=== PATIENT | female | born 1940 | race Caucasian/White ===

== ENCOUNTER 2019-06-28 09:35 | Observation (INO) ==
--- NOTE | 2019-06-24 12:10 | Anesthesiology Consultation ---
Date of Service June 24, 2019 Assessment & Plan (1) Encounter for pre-operative examination: Chart Review Chart Review: Acceptable Risk for Surgery (pending confirmed EKG and re- evaluation DOS ) and Patient NOT seen in Pre Admission Testing Pt seen by PCP 06/08/19 for epigastric pain and N/V. Was also having chest congestion and tightness. Pt was add on for surgery and did not come through PAT- will need re-evaluation DOS. Preliminary EKG showing no significant issues- will just need confirmed EKG reviewed DOS History Surgery Operation Date: 06/28/19 11:10 Proposed Procedures p Laparoscopic Cholecystectomy - Riky Arroyo MD, FACS Height/Weight Height: 5 ft 5 in Weight: 75.75 kg Allergies Allergy/AdvReac Type Severity Reaction Status Date / Time Iodinated Contrast Media Allergy Intermediate Rash Verified 06/24/19 10:24 Penicillins Allergy Intermediate Rash Verified 06/24/19 13:59 aspirin Allergy Unverified 06/24/19 14:54 Medications Home Medications Medication Instructions Recorded Confirmed Last Taken ascorbic acid (vitamin C) [Vitamin 1 g PO QAM 06/24/19 06/24/19 Unknown C] diltiazem HCl 120 mg 120 mg PO ONCE cap 06/24/19 06/24/19 Unknown capsule,extended release 12 hr simvastatin 40 mg tablet 40 mg PO DAILY 06/24/19 06/24/19 Unknown Past Medical History Medical History Arthritis Diverticular disease History of colitis Hyperlipidemia Hypertension Past Family History Family History Mother Family history of diabetes mellitus Grandmother (Maternal) Family history of diabetes mellitus Brother History of colon cancer Sister History of esophageal cancer Past Surgical History Surgical History History of amputation of toe Left great toe History of colonoscopy History of tonsillectomy History of tooth extraction Social History Smoking Status: Never smoker (second handsmoke exposure- was smoker) Hx Alcohol Use: No Hx Substance Use: No Testing Laboratory Results Laboratory Tests 06/21/19 06/21/19 08:34 08:34 WBC 8.50 Hgb 14.1 Hct 43.8 Plt Count 302 Sodium 141 Potassium 4.3 Chloride 105 Carbon Dioxide 32 BUN 11 Creatinine 0.71 Glucose 107 H Electrocardiogram Date: 06/24/19 Findings: + NSR @ (71) unconfirmed
[~2019-06-28 09:35] MED LIST: ACETAMINOPHEN 1000 MG/100 ML IV IV ONE; CIPROFLOXACIN 400 MG/200 ML BAG IV SCH; LR 15ML/HR IV SCH
[2019-06-28] MEDS ORDERED: ROCURONIUM BROMID 50MG/5ML SYR ONE (10:27)
[2019-06-28] MEDS ORDERED: LIDOCAINE HCL 2% 2 ML VIAL/AMP(20MG/ML) INFIL ONE (10:27)
[2019-06-28] MEDS ORDERED: ONDANSETRON INJ 2 MG/ML 2 ML VIAL ONE (10:27)
[2019-06-28] MEDS ORDERED: PROPOFOL IV EMULSION 10 MG/ML 20 ML VIAL IV ONE (10:27)
[2019-06-28] MEDS ORDERED: fentaNYL citrate 100 MCG/2 ML VIAL ONE ×2 (10:27→12:39)
[2019-06-28] MEDS ORDERED: BUPIVACAINE 0.5 % 5 MG/1 ML MPF 30ML VIAL ONE (10:56)
--- NOTE | 2019-06-28 10:57 | History & Physical Bridge Note ---
Date of Service June 28, 2019 History & Physical Bridge Note I have examined the patient, reviewed the History & Physical and in the interval since the performance of the History & Physical I have noted the following changes of clinical significance: no changes noted
[2019-06-28] MEDS ORDERED: FLUMAZENIL 0.1 MG/1 ML 10 ML VIAL IV PRN (11:13)
[2019-06-28] MEDS ORDERED: LABETALOL HCL IV 5 MG/ML 20ML IV PRN (11:13)
[2019-06-28] MEDS ORDERED: ATROPINE SULFATE 0.1 MG/ML 10ML SYR IV PRN (11:13)
[2019-06-28] MEDS ORDERED: PROMETHAZINE HCL 12.5 MG in SODIUM CHLORIDE 0.9% 50 ML IV PRN ×2 (11:13→13:59)
[2019-06-28] MEDS ORDERED: fentaNYL citrate 100 MCG/2 ML VIAL IV PRN (11:13)
[2019-06-28] MEDS ORDERED: ONDANSETRON INJ 2 MG/ML 2 ML VIAL IV PRN ×2 (11:13→13:59)
[2019-06-28] MEDS ORDERED: ePHEDrine sulfate 50 MG/ML AMP IV PRN (11:13)
[2019-06-28] MEDS ORDERED: NALOXONE HCL 0.4 MG/1 ML VIAL/CARP IV PRN (11:13)
[2019-06-28] MEDS ORDERED: ESMOLOL HCL INJ 10 MG/ML 10ML VIAL IV ONE (11:42)
[2019-06-28] MEDS ORDERED: FLOSEAL HEMOSTATIC MATRIX 10ML TOP ONE (12:10)
[2019-06-28] MEDS ORDERED: ACETAMINOPHEN 1,000 MG/100 ML VIAL IV STA (12:23)
--- NOTE | 2019-06-28 12:23 | Post Operative Brief Note ---
PG Immediate Post Op with CF Date of Surgery June 28, 2019 Pre & Post Diagnosis Operation Date: 06/28/19 11:10 Pre-Op Diagnosis: Biliary Colic Post-Op Diagnosis: Biliary Colic, severe acute/chronic cholecystitis adhesions I identified the patient and participated in the time-out.: Yes Procedure Operation Date: 06/28/19 11:10 Actual Procedures p Laparoscopic Cholecystectomy(Not Applicable) - Riky Arroyo MD, FACS Surgeon Riky Arroyo MD, FACS Rag Sorter Avtar Barboza Estimated Blood Loss 10 Findings Consistent with Post-Op Diagnosis Specimens Specimen Description: A gallbladder and contents Drains Chang-Ramsey Drain
--- NOTE | 2019-06-28 13:17 | Anesthesiology Progress Note ---
Date of Service June 28, 2019 Anesthesia Post Procedure Vital Signs Vital Signs: Temp Pulse Pulse Resp BP BP Pulse Ox 06/28/19 13:10 36.6 C 68 16 165/80 H 97 06/28/19 13:00 70 16 177/80 H 98 06/28/19 12:50 74 16 173/77 H 98 06/28/19 12:43 36.4 C L 84 14 180/86 H 96 06/28/19 10:00 37.1 C 88 18 181/97 H 97 Transfer of Care Handoff Completed per policy Notes Mental Status: alert / awake / arousable Patient Amnestic to Procedure: Yes Nausea / Vomiting: adequately controlled Pain: adequately controlled Airway Patency, RR, SpO2: stable & adequate BP & HR: stable & adequate Hydration State: stable & adequate Anesthetic Complications: no major complications apparent
--- NOTE | 2019-06-28 13:30 | Operative Report ---
DATE OF OPERATION: 06/28/2019 NAME OF OPERATION: Laparoscopic cholecystectomy with lysis of adhesions. PREOPERATIVE DIAGNOSIS: Biliary colic. POSTOPERATIVE DIAGNOSES: Biliary colic with severe acute and chronic cholecystitis and adhesions. STAFF SURGEON: Riky Arroyo M.D. NATUROPATHIC ONCOLOGY PROVIDER: Brittni Barboza. ANESTHESIA: General. DESCRIPTION OF PROCEDURE: The patient was brought in the operating room and placed on the operating table in supine position. Her abdomen was prepped and draped in usual fashion. Pneumatic stockings and orogastric tube were placed. 0.5% plain Marcaine was used to anesthetize all incisions. Incision was made above the umbilicus, carrying dissection down to the fascia, placing a Veress needle producing pneumoperitoneum. An 11 mm port placed at this level and under visualization, three 5 mm ports were placed, 1 cephalad and 2 laterally. Gallbladder was very thick and chronically scarred. There were adhesions to the gallbladder. These were taken down. The bryan hepatis was then identified and dissection carried out. It was very inflamed consistent with acute and chronic cholecystitis. I was able to identify the cystic duct and cystic artery. These were clipped and transected. Then the gallbladder dissected away from the liver bed. There was significant scar tissue. I did place some FloSeal, gallbladder was placed in an Endobag. A 15 round Chang-Ramsey drain placed through the lateral 5 mm port site into the subhepatic space, secured to the skin using 3-0 nylon suture. The gallbladder was then removed through the umbilical site using a 5 mm camera, I did have to increase the size of the fascial defect because of the size of the gallbladder. Fascia at the umbilicus closed using interrupted 0 PDS suture and then the skin reapproximated using 4-0 nylon suture. Dressing was applied and patient transferred to recovery room in stable condition. My chiropractic assistant helped with prepping, draping, removal of the gallbladder and closure of the wounds. I attest to the content of the Intraoperative Record and any orders documented therein. Any exception s are noted below.
[2019-06-28] MEDS ORDERED: ACETAMINOPHEN 325 MG TAB PO PRN (13:59)
[2019-06-28] MEDS ORDERED: MoRPHine SULFATE 2 MG/ML CARP IV PRN ×2 (13:59)
[2019-06-28] MEDS ORDERED: SODIUM CHLORIDE 0.9% 1000ML 1,000 ML IV SCH (13:59)
[2019-06-28] MEDS ORDERED: HYDROCODONE/ACETAMOPHEN 5/325MG TAB PO PRN ×2 (13:59)
--- NOTE | 2019-06-28 15:34 | History & Physical Report ---
Date of Service June 28, 2019 Assessment & Plan (1) Biliary colic: * POD #0 s/p lap santhosh with KIET drain placement with Dr. Arroyo * Pain management/PT/OT/DVT prophylaxis per primary team * Pre-op h/h 14.1/43.8 * EBL 10mL * Monitor CBC (2) Acute and chronic cholecystitis: * Severe acute on chronic cholecystitis noted during surgery, now s/p lap santhosh with KIET drain in place * continues on Cipro 400mg IV q12h as per Surgery * continue IVFs, antiemetics, pain control * f/u pathology from surgery (3) Hyperlipidemia: * Continue home simvastatin 40mg -- per patient, she takes every third day (4) Hypertension: * Chronic. Stable * Currently 138/76 * Continue home Diltazem 120mg * Continue to monitor (5) Arthritis: * Chronic. Stable. No current acute flares/pain * Tylenol prn (6) DVT prophylaxis: * Per primary team * SCDs Thank you for allowing hospitalist team participate in the care for Ms. Olivas. Medicine team will follow along. History of Present Illness Chief Complaint: Medical Management Primary Care Provider: Eugenia Burr DO 78 year old white female with PMH significant for HTN, HLD, colitis, arthritis presented for scheduled lap santhosh with Dr. Arroyo today. Patient states she is doing well. Denies any abdominal pain, but states she does feel a pressure in her epigastric region. She states she has had increased belching since surgery. Denies any flatus or bowel movements. Denies urinary hesitancy or urgency. Denies shortness of breath, nausea, vomiting. Previous surgeries include tonsils, dental extraction and toe amputation. No history of abdominal surgeries. She states she had been told ten years ago that she would likely need to have her gallbladder removed, but had been able to successfully hold off until recently, where she started to experience n/v/d with associated upper abdominal pain. Alk phos elevated at 172. All other LFTs wnl. Allergies Allergy/AdvReac Type Severity Reaction Status Date / Time aspirin Allergy Intermediate Rash Verified 06/28/19 12:12 Iodinated Contrast Media Allergy Intermediate Rash Verified 06/28/19 09:58 Penicillins Allergy Intermediate Rash Verified 06/28/19 09:58 Sulfa (Sulfonamide Allergy Unknown Verified 06/28/19 12:12 Antibiotics) Home Medications Home Medications Medication Instructions Recorded Confirmed Type ascorbic acid (vitamin C) [Vitamin 1 g PO QAM 06/24/19 06/28/19 History C] diltiazem HCl 120 mg 120 mg PO QAM cap 06/24/19 06/28/19 History capsule,extended release 12 hr simvastatin 40 mg tablet 40 mg PO Q3D 06/24/19 06/28/19 History alum-mag hydroxide-simeth [Mylanta 10 ml PO TID PRN 06/28/19 06/28/19 History Maximum Strength] Past Med/Surg History Medical History Arthritis Diverticular disease History of bronchitis History of colitis Hyperlipidemia Hypertension Surgical History H/O foot surgery toe removal 1969 History of amputation of toe Left great toe History of colonoscopy History of tonsillectomy History of tooth extraction S/P laparoscopic cholecystectomy (06/28/19) Laparoscopic cholecystectomy with lysis of adhesions. Dr. Arroyo 06-28-19 Family History Mother Family history of diabetes mellitus Diabetes Hypertension Cancer Grandmother (Maternal) Family history of diabetes mellitus Brother History of colon cancer Sister History of esophageal cancer Grandmother Diabetes Hypertension Son Heart disease Social History Preferred Language: Hebrew Communication Ability: Effective Set Off Press Operator Required: No Beliefs That Will Affect Care: None marital status: / Current Living Situation: Family Current Living Situation Comment: dtr lives with pt current occupational status: retired Other Information That Helps Us Care for You: No Feels Safe at Home: Yes Safety Concerns: Feels Safe At This Time Smoking Status: Never smoker (second handsmoke exposure- was smoker) Do You Dip or Chew Tobacco: No ; Second Hand Exposure: Yes ( was a smoker) ; Hx Alcohol Use: No Hx Substance Use: No Review of Systems Review of Systems: All systems reviewed & are unremarkable except as noted in HPI & below Constitutional: no fever and no chills Eyes: no diplopia and no discharge Ear, Nose, Mouth, Throat: no sore throat and no dysphagia Respiratory: no cough and no dyspnea Cardiovascular: no chest pain, no palpitations and no edema Gastrointestinal: + belching; no abdominal pain, no nausea, no vomiting, no constipation and no diarrhea/loose stools Genitourinary: no dysuria and no urinary frequency Musculoskeletal: no joint pain and no myalgia Integumentary: no rash and no lesions Neurologic: no numbness and no paresthesia Psychiatric: no depression and no anxiety Endocrine: no cold intolerance and no heat intolerance Allergy / Immunological: no cough and no rash Physical Exam Constitutional: WD/WN, vitals as above no acute distress Eyes: + anicteric sclerae and PERRL ENMT: external ear and nose normal, oropharynx normal Neck: trachea midline, no thyromegaly Respiratory: normal respiratory effort, lungs clear to auscultation Cardiovascular: RRR, no murmur, no edema Gastrointestinal (Abdomen): Inspection/Auscultation: abdomen normal to inspection and normal bowel sounds Percussion/Palpation: + abdomen tender (minimally tender diffusely) and abdomen soft surgical dressings c/d/i without evidence of drainage/erythema KIET drain with 5cc serosanguineous drainage Musculoskeletal: no cyanosis or clubbing, extremities motor strength 5/5 Skin: no rashes, warm and dry Neurologic: PERRL, EOMI, accommodation nl, no face palsy, no dysarthria Psychiatric: A+Ox3, euthymic affect Lymphatic: no cervical or axillary lymphadenopathy Results & Data Vital Signs (Past 12 Hours) Vital Signs Temp Pulse Pulse Pulse Resp BP BP 06/28/19 15:03 78 18 138/76 06/28/19 14:20 72 18 155/81 H 06/28/19 13:30 70 16 164/72 H 06/28/19 13:20 61 16 162/73 H 06/28/19 13:10 36.6 C 68 16 165/80 H 06/28/19 13:00 70 16 177/80 H 06/28/19 12:50 74 16 173/77 H 06/28/19 12:43 36.4 C L 84 14 180/86 H 06/28/19 10:00 37.1 C 88 18 181/97 H Pulse Ox 06/28/19 15:03 98 06/28/19 14:20 97 06/28/19 13:30 97 06/28/19 13:20 97 06/28/19 13:10 97 06/28/19 13:00 98 06/28/19 12:50 98 06/28/19 12:43 96 06/28/19 10:00 97 Code Status & VTE Plan VTE Prophylaxis Plan VTE Prophylaxis will be ordered: Yes Supervising Physician Co-Signing Physician Notes PA Supervision Note: I personally saw and examined the patient. I verified all sterling points and agree with DI Dunn with the following exceptions and/or additions: Pt doing very well post-op. Is eating, minimal and pain, no SOB or CP. No flatus yet but is making urine. History reviewed, ROS as above VSS RRR no mgr CTAB no wcr Abd +BS soft min TTP over incision sites, dressings in place, no guarding or rebound Ext no edema 78 yo female with history as above, here for biliary colic, now s/p lap santhosh for acut earl chronic cholecystitis -continue abx, fluids, pain control -post-op care as per Surgery will follow along follow BMP, CBC in AM PG Care Time/CCT Total # of Minutes Spent Total Time Spent with Patient: Total time spent is greater than 50% in coordina tion of care (as documented) at patient's floor/unit and/or counseling patient: Coding Level of Care Code 08830 Initial Inpt Care Lvl 3 Diagnoses Biliary colic K80.50 Acute and chronic cholecystitis K81.2 Hyperlipidemia E78.5 Hypertension I10 Arthritis M19.90 DVT prophylaxis Z29.9 CPT Codes Initial Inpatient Consult, Lvl 5 - [id number]
[2019-06-28] MEDS ORDERED: CIPROFLOXACIN 400 MG/200 ML BAG IV SCH (23:00)
[2019-06-29 05:46] LABS: Hematocrit (blood only) 39.6 % (37-47); Immature Granulocytes # (auto) 0.02 K/uL (0.00-0.02); Immature Granulocytes % (auto) 0.1 %; Lymphocytes # (auto) 0.69 K/uL (1.2-3.4); Lymphocytes % (auto) 4.3 %; Mean Corpuscular Hgb Conc 32.8 g/dL (32-36); Mean Corpuscular Volume 91.2 fL (80-100); Mean Platelet Volume 9.5 fL (7.4-10.4); Monocytes # (auto) 0.99 K/uL (0.11-0.59); Monocytes % (auto) 6.2 %; Neutrophils # (auto) 14.26 K/uL (1.4-6.5); Neutrophils % (auto) 89.4 %; Platelet Count 245 K/uL (130-400); RDW Standard Deviation 40.8 fL (36.4-46.3); Red Blood Count 4.34 M/uL (4.2-5.4); White Blood Count 15.96 K/uL (4.8-10.8)
[2019-06-29 06:21] LABS: BUN Creatinine Ratio 16.5 (10-20); Bilirubin Direct 0.1 mg/dl (0-0.2); Calcium 8.9 mg/dl (8.5-10.1); Creatinine Clr Calc Pharmacy 66.4 ml/min; Est GFR (African American) 96.2; Potassium 4.1 mmol/L (3.5-5.1)
[2019-06-29 06:24] LABS: Bilirubin,Total 0.7 mg/dl (0.2-1)
--- NOTE | 2019-06-29 07:57 | Anesthesiology Progress Note ---
Date of Service June 29, 2019 Anesthesia Post Procedure Vital Signs Vital Signs: Temp Pulse Pulse Pulse Resp BP BP 06/29/19 07:15 37.0 C 92 H 16 147/74 H 06/29/19 03:04 37 C 86 18 153/69 H 06/28/19 23:05 37.1 C 84 18 139/73 06/28/19 17:15 36.7 C 77 16 166/78 H 06/28/19 15:50 36.6 C 69 16 160/79 H 06/28/19 15:03 78 18 138/76 06/28/19 14:20 72 18 155/81 H 06/28/19 13:30 70 16 164/72 H 06/28/19 13:20 61 16 162/73 H 06/28/19 13:10 36.6 C 68 16 165/80 H 06/28/19 13:00 70 16 177/80 H 06/28/19 12:50 74 16 173/77 H 06/28/19 12:43 36.4 C L 84 14 180/86 H 06/28/19 10:00 37.1 C 88 18 181/97 H Pulse Ox 06/29/19 07:15 90 06/29/19 03:04 90 06/28/19 23:05 95 06/28/19 17:15 97 06/28/19 15:50 98 06/28/19 15:03 98 06/28/19 14:20 97 06/28/19 13:30 97 06/28/19 13:20 97 06/28/19 13:10 97 06/28/19 13:00 98 06/28/19 12:50 98 06/28/19 12:43 96 06/28/19 10:00 97 Notes Mental Status: alert / awake / arousable and participated in evaluation Nausea / Vomiting: adequately controlled Pain: adequately controlled Airway Patency, RR, SpO2: stable & adequate BP & HR: stable & adequate Hydration State: stable & adequate
--- NOTE | 2019-06-29 08:48 | Discharge Summary ---
PRINCIPAL DIAGNOSIS: Acute and chronic cholecystitis. PROCEDURES: The patient underwent laparoscopic cholecystectomy with drain placement. HISTORY OF PRESENT ILLNESS: The patient is a 78-year-old female with longstanding symptoms of gallbladder disease for cholecystectomy. She was brought into the hospital on 06/28/2019 where she underwent laparoscopic cholecystectomy, which was somewhat difficult because of her significant acute and chronic disease requiring drain placement. She has done well overnight and is felt stable for discharge home today to be followed in the surgical clinic this week.
[2019-06-29] MEDS ORDERED: dilTIAZem HCL 120 MG CAPCR PO SCH (09:00)
[2019-06-29] MEDS ORDERED: dilTIAZem ER 120 MG CAPCR PO SCH (09:00)
[2019-06-29] MEDS ORDERED: SIMVASTATIN 40 MG TAB PO SCH (09:00)
== END 2019-06-29 10:00 | disposition home or self-care (01) ==
LOC: 3N 09:35 → ASU 09:35